=== PATIENT | male | born 1985 | race Caucasian/White ===

== ENCOUNTER 2020-05-08 12:47 | Outpatient (REF) | payer MEDICAID, SELFPAY | END 2020-05-08 12:48 | disposition home or self-care (01) | LOC: HO.HMGCLDS 12:47 | PROVIDERS: Visit Provider Internal Medicine | DX: Z20.828 Contact with and (suspected) exposure to other viral communicable diseases (principal) | CPT/HCPCS: C9803; U0003 ==

== ENCOUNTER 2020-08-09 13:24 | Outpatient (REF) | payer MEDICAID, SELFPAY ==
--- NOTE | ~2020-08-09 | XR_ITS ---
EXAMINATION: XR RIBS, RIGHT CLINICAL INFORMATION: Pleurodynia COMPARISON: None TECHNIQUE: 4 views of the right ribs were obtained. FINDINGS: Lungs are clear. No consolidation, or pleural effusion. No pneumothorax is seen. The cardiomediastinal silhouette and pulmonary vasculature are normal. No acute displaced rib fractures are identified.. XR/XR ribs RT min 3V w CXR1V IMPRESSION: 1. No evidence of acute pulmonary process. 2. No acute displaced rib fractures are identified.
== END 2020-08-09 13:25 | disposition home or self-care (01) ==
LOC: HO.HMGCLDS 13:24
PROVIDERS: Visit Provider Hospitalist
DX: R07.81 Pleurodynia (principal)
CPT/HCPCS: 71101

== ENCOUNTER 2022-07-16 10:25 | Emergency (ER) | payer MEDICAID, SELFPAY ==
--- NOTE | ~2022-07-16 | XR_ITS ---
EXAMINATION: XR CHEST CLINICAL INFORMATION: Chest pain COMPARISON: X-ray 08/09/2020 TECHNIQUE: 2 views of the chest were obtained. FINDINGS: The cardiomediastinal silhouette is within normal limits. The lungs are well expanded. There is no focal consolidation, edema, or effusion. No pneumothorax. No acute osseous abnormality. XR/XR chest 2V IMPRESSION: No acute cardiopulmonary findings.
[2022-07-16 11:24] VITALS: BP 176/95; PULSE 96; RESP 18; TEMP 36.2; O2SAT 98; BMI 27.8
--- NOTE | 2022-07-16 11:25 | ED_ITS ---
HPI - Arrhythmia/Palpitations General Chief Complaint: Chest Pain Stated Complaint: palpitation, fast heart rate Related Data Home Medications Medication Instructions Recorded Confirmed No Known Home Meds 08/09/20 08/09/20 Allergies Allergy/AdvReac Type Severity Reaction Status Date / Time No Known Allergies Allergy Verified 07/16/22 11:24 [facility] Past Medical History Medical History (Updated 07/18/22 @ 10:01 by EVELYNE Temple) Rib pain on right side Social History Social History Advance Directives: No Advance Directives Information Provided: No Physical Exam Vital Signs: Vital Signs: Last Vital Signs Temp 97.1 F 07/16/22 11:24 Pulse 96 07/16/22 11:24 Resp 18 07/16/22 11:24 BP 176/95 H 07/16/22 11:24 Pulse Ox 98 07/16/22 11:24 O2 Del Method 07/16/22 11:24 BMI result Body Mass Index 27.8 Course Course Course Narrative: RME - 37 yo male presenting to the ER with racing heart rate that started last night. Reports some left sided chest pain now, started this morning. [place] pre- syncopal this morning a few times. He reports HR 120s at home. No medical problems. HR 90-100 in triage. EKG, labs, CXR ordered. Stable to go to waiting room until treatment room available. Medical Decision Making Lab Data 07/16/22 11:33 07/16/22 11:33 Labs: Lab Results 07/16/22 07/16/22 07/16/22 Range/Units 11:33 11:33 11:33 WBC 8.7 (4.8-10.8) X10*3/uL RBC 6.03 H (4.60-5.80) X10*6/uL Hgb 17.2 (14.0-18.0) g/dl Hct 49.2 (42.0-52.0) % MCV 81.6 (80.0-98.0) fL MCH 28.5 (27.0-33.0) pg MCHC 35.0 (31.0-36.0) g/dl RDW 12.3 (11.0-16.0) % Plt Count 144 L (160-400) X10*3/uL MPV 11.7 (9.4-12.4) fL Immature Gran % (Auto) 0.3 (0.0-0.4) % Neut % (Auto) 90.9 H (45-73) % Lymph % (Auto) 4.1 L (20-40) % [place] % (Auto) 3.7 (2-11) % Eos % (Auto) 0.8 (0-4) % Baso % (Auto) 0.2 (0-2) % Lymph # (Auto) 0.4 L (1.2-4.9) X10*3/uL [place] # (Auto) 0.3 (0.1-1.2) X10*3/uL Eos # (Auto) 0.1 (0.0-0.4) X10*3/uL Baso # (Auto) 0.0 (0.0-0.2) X10*3/uL Abs Immat Gran (auto) 0.03 (0.00-0.03) X10*3/uL Absolute Neuts (auto) 7.9 (2.0-8.3) x10*3/uL Absolute Nucleated RBC 0.000 (0.0-0.012) X10*3/uL Nucleated RBC % (auto) 0.0 (0.0-0.2) /100WBC Smear Tech's Comments VERIFIED Sodium 139 (135-145) mmol/L Potassium 4.4 (3.3-5.1) mmol/L Chloride 104 (96-108) mmol/L Carbon Dioxide 26 (22-29) mmol/L Anion Gap 13 (12-20) BUN 13 (9-16) mg/dL Creatinine 1.10 (0.5-1.4) mg/dL Estim Creat Clear Calc 105.9 Estimated GFR > 60 Random Glucose 106 (60-115) mg/dL Calcium 9.6 (8.4-10.2) mg/dL Magnesium 2.0 (1.6-2.6) mg/dL Total Bilirubin 1.5 H (0.0-1.0) mg/dL Direct Bilirubin 0.3 (0.0-0.5) mg/dL AST 27 (5-37) U/L ALT 44 H (0-40) U/L Alkaline Phosphatase 74 (39-117) U/L Troponin I High Sens < 3.5 (<3.5-35.0) ng/L Total Protein 7.6 (6.5-8.0) g/dL Albumin 5.1 H (3.5-5.0) g/dL TSH 1.37 (0.32-4.0) uIU/mL COVID-19 (SHAUNA) (Negative) COVID-19 Clin Com Influenza Type A (SHAY) (Negative) Influenza Type B (SHAY) (Negative) Influenza A & B Note 07/16/22 07/16/22 Range/Units 11:39 11:39 WBC (4.8-10.8) X10*3/uL RBC (4.60-5.80) X10*6/uL Hgb (14.0-18.0) g/dl Hct (42.0-52.0) % MCV (80.0-98.0) fL MCH (27.0-33.0) pg MCHC (31.0-36.0) g/dl RDW (11.0-16.0) % Plt Count (160-400) X10*3/uL MPV (9.4-12.4) fL Immature Gran % (Auto) (0.0-0.4) % Neut % (Auto) (45-73) % Lymph % (Auto) (20-40) % [place] % (Auto) (2-11) % Eos % (Auto) (0-4) % Baso % (Auto) (0-2) % Lymph # (Auto) (1.2-4.9) X10*3/uL [place] # (Auto) (0.1-1.2) X10*3/uL Eos # (Auto) (0.0-0.4) X10*3/uL Baso # (Auto) (0.0-0.2) X10*3/uL Abs Immat Gran (auto) (0.00-0.03) X10*3/uL Absolute Neuts (auto) (2.0-8.3) x10*3/uL Absolute Nucleated RBC (0.0-0.012) X10*3/uL Nucleated RBC % (auto) (0.0-0.2) /100WBC Smear Tech's Comments Sodium (135-145) mmol/L Potassium (3.3-5.1) mmol/L Chloride (96-108) mmol/L Carbon Dioxide (22-29) mmol/L Anion Gap (12-20) BUN (9-16) mg/dL Creatinine (0.5-1.4) mg/dL Estim Creat Clear Calc Estimated GFR Random Glucose (60-115) mg/dL Calcium (8.4-10.2) mg/dL Magnesium (1.6-2.6) mg/dL Total Bilirubin (0.0-1.0) mg/dL Direct Bilirubin (0.0-0.5) mg/dL AST (5-37) U/L ALT (0-40) U/L Alkaline Phosphatase (39-117) U/L Troponin I High Sens (<3.5-35.0) ng/L Total Protein (6.5-8.0) g/dL Albumin (3.5-5.0) g/dL TSH (0.32-4.0) uIU/mL COVID-19 (SHAUNA) Negative (Negative) COVID-19 Clin Com See Note Influenza Type A (SHAY) Negative (Negative) Influenza Type B (SHAY) Negative (Negative) Influenza A & B Note See Note Discharge Plan Discharge Clinical Impression: Heart palpitations Patient Disposition: Elopement Prescriptions: No Action No Known Home Meds Discharge Date/Time: 07/16/22 16:47
--- NOTE | 2022-07-16 11:26 | ECG_ITS ---
Test Reason : palpitations Blood Pressure : / mmHG Vent. Rate : 092 BPM Atrial Rate : 092 BPM P-R Int : 142 ms QRS Dur : 084 ms QT Int : 328 ms P-R-T Axes : 063 041 038 degrees QTc Int : 405 ms Normal sinus rhythm Normal ECG No previous ECGs available Referred By: Veronica Ricketts Electronically Signed By:Wes Morrissey
[2022-07-16 11:56] LABS: Basophils Percent Auto 0.2 % (0-2); Eosinophils Absolute Auto 0.1 X10*3/uL (0.0-0.4); Eosinophils Percent Auto 0.8 % (0-4); Hematocrit 49.2 % (42.0-52.0); Hemoglobin 17.2 g/dl (14.0-18.0); Imm Gran Abs Auto 0.03 X10*3/uL (0.00-0.03); Imm Gran Pct Auto 0.3 % (0.0-0.4); Lymphocytes Absolute Auto 0.4 X10*3/uL (1.2-4.9); Lymphocytes Percent Auto 4.1 % (20-40); MANUAL DIFF FLAG SCAN; Mean Corpuscular Hemoglobin 28.5 pg (27.0-33.0); Mean Corpuscular Volume 81.6 fL (80.0-98.0); Mean Platelet Volume 11.7 fL (9.4-12.4); Monocytes Absolute Auto 0.3 X10*3/uL (0.1-1.2); Monocytes Percent Auto 3.7 % (2-11); Neutrophils Absolute Auto 7.9 x10*3/uL (2.0-8.3); Neutrophils Percent Auto 90.9 % (45-73); Platelet Count 144 X10*3/uL (160-400); Red Blood Count 6.03 X10*6/uL (4.60-5.80); Red Cell Distribution Width 12.3 % (11.0-16.0); SCAN SMEAR FLAG 1; White Blood Count 8.7 X10*3/uL (4.8-10.8)
[2022-07-16 12:14] LABS: Alanine Aminotransferase 44 U/L (0-40); Albumin Level 5.1 g/dL (3.5-5.0); Alkaline Phosphatase 74 U/L (39-117); Anion Gap 13 (12-20); Aspartate Amino Transferase 27 U/L (5-37); Bilirubin Direct 0.3 mg/dL (0.0-0.5); Bilirubin Total 1.5 mg/dL (0.0-1.0); Blood Urea Nitrogen 13 mg/dL (9-16); Calcium 9.6 mg/dL (8.4-10.2); Carbon Dioxide 26 mmol/L (22-29); Chloride 104 mmol/L (96-108); Creatinine Clr Calc Pharmacy 105.9; Estimated Glomerular Filt Rate > 60; Glucose Random 106 mg/dL (60-115); Potassium 4.4 mmol/L (3.3-5.1); Sodium 139 mmol/L (135-145); Total Protein 7.6 g/dL (6.5-8.0)
[2022-07-16 12:14] LABS: COVID-19 Test Negative (Negative); IDNOW Serial# BCCEAD1C
[2022-07-16 12:16] LABS: Troponin-I High Sensitivity < 3.5 ng/L (<3.5-35.0)
[2022-07-16 12:17] LABS: IDNOW Serial# 16C4AD1C; Influenza A Negative (Negative)
[2022-07-16 12:18] LABS: Influenza B2 Negative (Negative)
[2022-07-16 12:29] LABS: TSH reflex Free T4 1.37 uIU/mL (0.32-4.0)
[2022-07-16 13:00] LABS: SLIDE REVIEW VERIFIED
== END 2022-07-16 16:47 | disposition left against medical advice (07) ==
PROVIDERS: Emergency Provider Physician Assistant
DX: R00.2 Palpitations (principal); Z20.822 Contact with and (suspected) exposure to COVID-19
CPT/HCPCS: 71046; 80048; 80076; 83735; 84443; 84484; 85025; 87502; 87635; 93005; 99283

== ENCOUNTER 2024-11-28 22:56 | Emergency (ER) | payer OTHER, SELFPAY ==
[2024-11-28 23:18] VITALS: BP 163/103; PULSE 105; RESP 19; TEMP 36.1; O2SAT 97; BMI 29.7
--- NOTE | 2024-11-28 23:18 | ED.GENADULT ---
HPI - General Adult General Chief complaint: General Medical Stated complaint: food stuck in throat Time Seen by Provider: 11/29/24 00:26 Source: patient Mode of arrival: ambulatory Limitations: no limitations History of Present Illness ED Provider: Dr. Xin Puga HPI narrative: Patient comes to the emergency room complaining of a food bolus being stuck in his esophagus. According to the patient, he had pork for dinner a proximally 15 minutes prior to arrival. Patient states that he did not choke. However, patient states that he feels a lot of pressure in his esophagus. Patient states that initially he could not swallow his own saliva. Patient states that this has never happened before, no history of endoscopies. Patient denies chest pain or shortness of breath. Related Data Home Medications ?Medication ?Instructions ?Recorded ?Confirmed No Known Home Meds 08/09/20 08/09/20 Allergies Allergy/AdvReac Type Severity Reaction Status Date / Time No Known Allergies Allergy Verified 11/28/24 23:22 Review of Systems Review of Systems: Constitutional : No Weight loss, No Fever, No Chills, No Night Sweats, No Fatigue, No Malaise ENT/Mouth : No Hearing loss, No Ear Pain, No Nasal Congestion, No Sinus Pain, No Hoarseness, No sore throat, No Rhinorrhea, No Swallowing Difficulty Eyes: No Eye Pain, No Swelling, No Redness, No Foreign Body, No Discharge, No Vision Changes Cardiovascular : No Chest Pain, No SOB, No Dyspnea on Exertion, No Orthopnea, No Edema, No Palpitations Respiratory : No Cough, No Sputum, No Wheezing, No Smoke Exposure, No Dyspnea Gastrointestinal : Patient complaining of a foreign body sensation in the esophagus, No Nausea, No Vomiting, No Diarrhea, No Constipation, No abdominal Pain, No Hematochezia, No Melena Genitourinary : No Dysuria, No Urinary Frequency, No Hematuria, No Urinary Incontinence, No Urgency, No Flank Pain, No Urinary Flow Changes, No Hesitancy Musculoskeletal : No joint pain, No Myalgias, No Joint Swelling Skin : No Skin Lesions, No rash Neuro : No Weakness, No Numbness, No Paresthesias, No Loss of Consciousness, No Dizziness, No Headache Psych : No Anxiety/Panic, No Depression, No SI/HI/AH/VH, No Social Issues, Heme/Lymph: No Bruising, No Bleeding,No Lymphadenopathy Endocrine : No Polyuria, No Polydipsia, No Temperature Intolerance PMF Past Medical History Medical History Rib pain on right side Social History Social History Do you have a plan to hurt others: No Plan Physical Exam ED Vital Signs: Vital Signs - 24 hr 11/28/24 23:18 Temperature 96.9 F Pulse Rate 105 H Respiratory Rate 19 Blood Pressure 163/103 H Pulse Oximetry 97 Oxygen Delivery Method Room Air BMI result Body Mass Index 29.7 Const Other: Appearance: Alert. Oriented X3. No acute distress. Eyes: Pupils equal, round and reactive to light. ENT: Pharynx normal. Neck: Normal inspection. Neck supple. No lymph nodes noted. No crepitus CVS: Normal heart rate and rhythm. Pulses normal. Normal S1 and S2 Respiratory: No respiratory distress. Breath sounds normal. No Wheezing. No rales Abdomen: Soft and nontender. No rigidity. No distention. Skin: Skin warm and dry. Normal skin color. Normal skin turgor. Extremities: No lower extremity edema. No Lacerations. No Rash Neuro: Oriented X 3. No motor deficit. No sensory deficit. Moving all extremities. No slurred speech. CN 2 through 12 grossly intact Psych: calm, cooperative, normal affect Course Course Course Narrative: 39 yo male with no PMH around 1045pm ate boneless pork states he cannot drink liquids, spitting his saliva. He has never had EGD in past but states everytime he eats pork he has issues. He takes no medications. No fam hx. at this time will obtain basic labs, start on glucagon then try oral liquid nitro if it does not improve this is a RAPID medical screening exam the rest of the history and physical exam is to be done by the main provider. NORA 11/28/24 1120pm Medications Administered Discontinued Medications Generic Name Dose Route Start Last Admin Trade Name Freq PRN Reason Stop Dose Admin Glucagon 1 mg 11/28/24 23:20 11/29/24 00:16 Glucagon Hcl 1 Mg Vial IVPUSH 11/28/24 23:21 1 mg ONCE ONE Administration Lactated Ringer's 1,000 mls @ 999 mls/hr 11/28/24 23:20 11/29/24 00:14 Lr IV 11/29/24 00:20 999 mls/hr .Q1H1M ONE Administration Medical Decision Making Medical Decision Making [facility] Narrative: My interpretation of labs: No abnormality in patient's hematology and chemistry, normal LFTs Patient received IV glucagon. A few minutes later after the IV medication, patient states that he is feeling much better. Patient was p.o. challenged, patient was able to swallow fluids without any difficulty, patient controlling saliva and oral secretions well, able to swallow back to normal. Patient states that he has had recurrent issues with food getting stuck but this is his 1st time that it gets so bad. I discussed with the patient that we will give him the phone number for Gastroenterology, patient may need an endoscopy to rule out esophageal strictures. However, this is a conversation that he can have with gastroenterology. At this time, patient asymptomatic, vitals stable Lab Data [facility] Lab Attestation statement: I reviewed the patient's lab results. 11/28/24 23:28 11/28/24 23:28 Labs: Lab Results 11/28/24 Range/Units 23:28 WBC 7.0 (4.8-10.8) X10*3/uL RBC 5.71 (4.60-5.80) X10*6/uL Hgb 16.4 (14.0-18.0) g/dl Hct 45.4 (42.0-52.0) % MCV 79.5 L (80.0-98.0) fL MCH 28.7 (27.0-33.0) pg MCHC 36.1 H (31.0-36.0) g/dl RDW 12.4 (11.0-16.0) % Plt Count 132 L (160-400) X10*3/uL MPV 12.4 (9.4-12.4) fL Immature Gran % (Auto) 0.4 (0.0-0.4) % Neut % (Auto) 62.7 (45-73) % Lymph % (Auto) 24.1 (20-40) % [place] % (Auto) 5.7 (2-11) % Eos % (Auto) 5.8 H (0-4) % Baso % (Auto) 1.3 (0-2) % Lymph # (Auto) 1.7 (1.2-4.9) X10*3/uL [place] # (Auto) 0.4 (0.1-1.2) X10*3/uL Eos # (Auto) 0.4 (0.0-0.4) X10*3/uL Baso # (Auto) 0.1 (0.0-0.2) X10*3/uL Abs Immat Gran (auto) 0.03 (0.00-0.03) X10*3/uL Absolute Neuts (auto) 4.4 (2.0-8.3) x10*3/uL Absolute Nucleated RBC 0.000 (0.0-0.012) X10*3/uL Nucleated RBC % (auto) 0.0 (0.0-0.2) /100WBC PT 10.5 L (10.9-12.4) SEC INR 0.9 (0.9-1.1) Sodium 142 (135-145) mmol/L Potassium 3.7 (3.3-5.1) mmol/L Chloride 107 (96-108) mmol/L Carbon Dioxide 23 (22-29) mmol/L Anion Gap 16 (12-20) BUN 12 (9-16) mg/dL Creatinine 1.06 (0.5-1.4) mg/dL Estim Creat Clear Calc 104.4 Estimated GFR > 60 Random Glucose 110 (60-115) mg/dL Calcium 9.9 (8.4-10.2) mg/dL Magnesium 1.9 (1.6-2.6) mg/dL Total Bilirubin 0.4 (0.0-1.0) mg/dL Direct Bilirubin < 0.1 (0.0-0.5) mg/dL AST 31 (5-37) U/L ALT 42 H (0-40) U/L Alkaline Phosphatase 68 (39-117) U/L Total Protein 7.8 (6.5-8.0) g/dL Albumin 4.7 (3.5-5.0) g/dL Discharge Plan Discharge Clinical Impression: Esophageal foreign body Patient Disposition: Home, Self-Care Instructions: Esophageal Foreign Body (ED) Additional Instructions: Please follow-up with your primary care physician tomorrow. If you have any worsening or new symptoms, please return to the emergency room or call 911 Prescriptions: No Action No Known Home Meds Referrals: Cindi Rivas MD [Physician] - 12/04/24 (not urgent) Print Language: [place] Citizen
[2024-11-28 23:32] LABS: MANUAL DIFF FLAG NO
[2024-11-28 23:34] LABS: Basophils Absolute Auto 0.1 X10*3/uL (0.0-0.2); Basophils Percent Auto 1.3 % (0-2); Eosinophils Absolute Auto 0.4 X10*3/uL (0.0-0.4); Eosinophils Percent Auto 5.8 % (0-4); Hematocrit 45.4 % (42.0-52.0); Hemoglobin 16.4 g/dl (14.0-18.0); Imm Gran Abs Auto 0.03 X10*3/uL (0.00-0.03); Imm Gran Pct Auto 0.4 % (0.0-0.4); Lymphocytes Absolute Auto 1.7 X10*3/uL (1.2-4.9); Lymphocytes Percent Auto 24.1 % (20-40); Mean Corpuscular HGB Conc 36.1 g/dl (31.0-36.0); Mean Corpuscular Hemoglobin 28.7 pg (27.0-33.0); Mean Corpuscular Volume 79.5 fL (80.0-98.0); Mean Platelet Volume 12.4 fL (9.4-12.4); Monocytes Absolute Auto 0.4 X10*3/uL (0.1-1.2); Monocytes Percent Auto 5.7 % (2-11); Neutrophils Absolute Auto 4.4 x10*3/uL (2.0-8.3); Neutrophils Percent Auto 62.7 % (45-73); Platelet Count 132 X10*3/uL (160-400); Red Blood Count 5.71 X10*6/uL (4.60-5.80); Red Cell Distribution Width 12.4 % (11.0-16.0)
[2024-11-28 23:39] LABS: INTERNATIONAL NORM RATIO 0.9 (0.9-1.1); Prothrombin Time 10.5 SEC (10.9-12.4)
[2024-11-28 23:54] LABS: Alanine Aminotransferase 42 U/L (0-40); Albumin Level 4.7 g/dL (3.5-5.0); Alkaline Phosphatase 68 U/L (39-117); Anion Gap 16 (12-20); Aspartate Amino Transferase 31 U/L (5-37); Bilirubin Direct < 0.1 mg/dL (0.0-0.5); Bilirubin Total 0.4 mg/dL (0.0-1.0); Blood Urea Nitrogen 12 mg/dL (9-16); Calcium 9.9 mg/dL (8.4-10.2); Carbon Dioxide 23 mmol/L (22-29); Chloride 107 mmol/L (96-108); Creatinine Clr Calc Pharmacy 104.4; Estimated Glomerular Filt Rate > 60; Glucose Random 110 mg/dL (60-115); Magnesium 1.9 mg/dL (1.6-2.6); Potassium 3.7 mmol/L (3.3-5.1); Sodium 142 mmol/L (135-145); Total Protein 7.8 g/dL (6.5-8.0)
[2024-11-29] MEDS: Lactated Ringers 1,000 ML 999 ML IV (00:14)
[2024-11-29] MEDS: glucagon HCL 1 MG VIAL IVPUSH (00:16)
[2024-11-29 01:23] VITALS: BP 139/89; PULSE 78; RESP 17; TEMP 36.7; O2SAT 98
[2024-11-29 01:28] VITALS: BP 139/89; PULSE 78; RESP 17; TEMP 36.7; O2SAT 98
== END 2024-11-29 01:29 | disposition home or self-care (01) ==
LOC: HO.ED 11-29 01:28
PROVIDERS: Emergency Medicine; Emergency Provider Emergency Medicine
DX: T18.128A Food in esophagus causing other injury, initial encounter (principal); W44.F3XA Food entering into or through a natural orifice, initial encounter; Y93.89 Activity, other specified; Y92.9 Unspecified place or not applicable; Y99.9 Unspecified external cause status
CPT/HCPCS: 36415; 80048; 80076; 83735; 85025; 85610; 96374; 99284; J1610; J7120